=== PATIENT | male | born 1960 | race Caucasian/White ===

== ENCOUNTER → 2018-09-06 | Outpatient (CLI) | payer BC ==
[~2018-09-06] MED LIST: ALBU90OI INH; ATOR40TA PO; Advair Hfa 230-12 GM MT; COQ1050 MG PO; CYAN1000 PO; DEXL60CA3; DEXL60CA3 PO; EPIN.3I IM; ETOD400 PO; GRALISE1 EACH PO; LISI20 PO; METF500 PO; MONT10T PO; OXYC5 PO; TYLENOL PO
[2018-09-07 14:10] LABS: Stool Occult Bld Immuno 1 Negative (NEGATIVE); Stool Occult Bld Immuno 2 Negative (NEGATIVE)
== END | disposition home or self-care (01) ==
LOC: LAB EV 15:30
PROVIDERS: Internal Medicine Gastroenterology
DX: Z13.818 Encounter for screening for other digestive system disorders (principal); Z12.11 Encounter for screening for malignant neoplasm of colon; K57.30 Diverticulosis of large intestine without perforation or abscess without bleeding; Z80.0 Family history of malignant neoplasm of digestive organs
CPT/HCPCS: G0328

== ENCOUNTER 2021-10-04 09:56 | Day surgery (SDC) | payer BC ==
[~2021-10-04] VITALS: Ht 180.3 cm; Wt 92.4 kg
[~2021-10-04 09:56] MED LIST changes: +AMLO10 PO; +SIMV40 PO
[2021-10-04] MEDS ORDERED: JARDIANCE10 MG (10:56)
== END 2021-10-04 13:10 | disposition home or self-care (01) ==
LOC: ORSCSDS 09:56
DX: K22.70 Barrett's esophagus without dysplasia (principal); K29.70 Gastritis, unspecified, without bleeding; R19.4 Change in bowel habit; K57.30 Diverticulosis of large intestine without perforation or abscess without bleeding; Z80.0 Family history of malignant neoplasm of digestive organs; R68.81 Early satiety; E11.9 Type 2 diabetes mellitus without complications; Z79.899 Other long term (current) drug therapy; Z79.84 Long term (current) use of oral hypoglycemic drugs
CPT/HCPCS: 82947; 88305; 88342; J2704; J7120

== ENCOUNTER 2021-10-08 21:24 | Emergency (ER) | payer OTHER, BC ==
[~2021-10-08] VITALS: Ht 180.3 cm; Wt 90.7 kg
[~2021-10-08 21:24] MED LIST changes: +JARDIANCE10 MG
[2021-10-08] MEDS ORDERED: AMOCLA875 PO (22:40)
[2021-10-11 00:07] LABS: HCV ANTIBODY <0.1 (0.0-0.9)
[2021-10-11 00:07] LABS: HIV SCREEN 4TH GENERATION WRFX Non Reactive (Non Reactive)
== END 2021-10-08 23:30 | disposition home or self-care (01) ==
LOC: ER 21:24
PROVIDERS: Physician Assistant
DX: S51.852A Open bite of left forearm, initial encounter (principal); I10 Essential (primary) hypertension; E11.9 Type 2 diabetes mellitus without complications; Z23 Encounter for immunization; Z88.8 Allergy status to other drugs, medicaments and biological substances; Z79.84 Long term (current) use of oral hypoglycemic drugs; Z79.899 Other long term (current) drug therapy; W50.3XXA Accidental bite by another person, initial encounter
CPT/HCPCS: 36415; 84460; 86317; 86803; 87389; 90471; 90714; 99283-25; A9270

== ENCOUNTER 2023-06-22 18:46 | Emergency (ER) | payer OTHER ==
[~2023-06-22] VITALS: Ht 182.9 cm; Wt 99.8 kg
[~2023-06-22 18:46] MED LIST changes: +AMOCLA875 PO
[2023-06-22 19:24] VITALS: BP 139/81
[2023-06-22] MEDS ORDERED: Robaxin750 MG PO (22:05)
== END 2023-06-22 22:15 | disposition home or self-care (01) ==
LOC: ER 18:46
DX: M54.50 Low back pain, unspecified (principal); I10 Essential (primary) hypertension; E11.9 Type 2 diabetes mellitus without complications; Z88.8 Allergy status to other drugs, medicaments and biological substances; Z79.899 Other long term (current) drug therapy; Z79.84 Long term (current) use of oral hypoglycemic drugs
CPT/HCPCS: 96372; 99283-25; A9270; J1885